=== PATIENT | female | born 1975 | race Caucasian/White ===

== ENCOUNTER → 2017-10-15 | Outpatient (CLI) | payer OTHER | END | disposition home or self-care (01) | LOC: US 18:02 | PROC: BG44ZZZ Ultrasonography of Thyroid Gland (ICD-10-PCS; principal; 2017-10-15) | DX: E03.9 Hypothyroidism, unspecified (principal) ==

== ENCOUNTER 2018-12-18 16:24 | Emergency (ER) | payer OTHER ==
[~2018-12-18] VITALS: Ht 170.2 cm; Wt 97.5 kg
[2018-12-18 16:25] VITALS: BP 122/68; Ht 170.2 cm; Wt 97.5 kg
[2018-12-18 17:37] LABS: BASOPHIL % 1.8 % (0-2); PLATELET COUNT 264 x10^3mcL (130-400)
[2018-12-18 17:41] LABS: CALCIUM 9.3 mg/dL (8.5-10.1); CARBON DIOXIDE 31.1 mmol/L (21-32); CHLORIDE SERUM 101 mmol/L (98-107); GFR1 > 60 mL/min; GLUCOSE SERUM 105 mg/dL (74-106); POTASSIUM SERUM 4.1 mmol/L (3.5-5.1); SODIUM SERUM 141 mmol/L (136-145)
[2018-12-18 17:45] LABS: ALBUMIN 3.8 g/dL (3.4-5.0); ALKALINE PHOSPHATASE 129 U/L (46-116); ALT/SGPT 67 U/L (14-59); AMYLASE 105 U/L (25-115); AST/SGOT 80 U/L (15-37); BILIRUBIN TOTAL 0.4 mg/dL (0.20-1.00); LIPASE 404 IU/L (73-393); TOTAL PROTEIN, SERUM 7.9 g/dL (6.4-8.2)
== END 2018-12-18 18:34 | disposition home or self-care (01) ==
LOC: ED 16:24
PROVIDERS: Specialist
DX: K85.10 Biliary acute pancreatitis without necrosis or infection (principal); K21.9 Gastro-esophageal reflux disease without esophagitis; Z88.0 Allergy status to penicillin; Z88.1 Allergy status to other antibiotic agents
CPT/HCPCS: J1885; J2405; J7030; Q0092

== ENCOUNTER → 2018-12-21 | Outpatient (CLI) | payer OTHER ==
[2018-12-21 11:23] LABS: microscopic required? NO
[2018-12-21 11:26] LABS: BASOPHIL % 0.3 % (0-2); PLATELET COUNT 281 x10^3mcL (130-400); RED CELL DISTRIBUTION WIDTH 14.3 % (11.5-14.5)
[2018-12-21 11:27] LABS: urine erythrocyte NEGATIVE (NEGATIVE)
[2018-12-21 11:49] LABS: ALBUMIN 4.2 g/dL (3.4-5.0); ALKALINE PHOSPHATASE 183 U/L (46-116); ALT/SGPT 543 U/L (14-59); AST/SGOT 141 U/L (15-37); BILIRUBIN TOTAL 0.41 mg/dL (0.20-1.00); CALCIUM 9.4 mg/dL (8.5-10.1); CHLORIDE SERUM 99 mmol/L (98-107); GFR1 > 60 mL/min; GLUCOSE SERUM 93 mg/dL (74-106); HDL CHOLESTEROL 60 mg/dL (40-60); POTASSIUM SERUM 4.2 mmol/L (3.5-5.1); SODIUM SERUM 136 mmol/L (136-145); TOTAL PROTEIN, SERUM 8.1 g/dL (6.4-8.2); TRIGLYCERIDES 78 mg/dL (<150)
[2018-12-21 11:50] LABS: CHOLESTEROL 222 mg/dL (<200); CHOLESTEROL/HDL RATIO 3.7
== END | disposition home or self-care (01) ==
LOC: LB 11:04
DX: I10 Essential (primary) hypertension (principal); D64.9 Anemia, unspecified; E03.9 Hypothyroidism, unspecified; E55.9 Vitamin D deficiency, unspecified; E11.9 Type 2 diabetes mellitus without complications; R82.90 Unspecified abnormal findings in urine

== ENCOUNTER 2019-04-09 09:26 | Emergency (ER) | payer OTHER ==
[~2019-04-09] VITALS: Ht 170.2 cm; Wt 94.3 kg
[2019-04-09 09:28] VITALS: Ht 170.2 cm; Wt 94.3 kg
[2019-04-09 10:11] VITALS: BP 126/78
== END 2019-04-09 10:11 | disposition home or self-care (01) ==
LOC: ED 09:26
DX: S40.862A Insect bite (nonvenomous) of left upper arm, initial encounter (principal); S40.861A Insect bite (nonvenomous) of right upper arm, initial encounter; K21.9 Gastro-esophageal reflux disease without esophagitis; Z86.2 Personal history of diseases of the blood and blood-forming organs and certain disorders involving the immune mechanism; Z87.19 Personal history of other diseases of the digestive system; Z88.1 Allergy status to other antibiotic agents; W57.XXXA Bitten or stung by nonvenomous insect and other nonvenomous arthropods, initial encounter; Y93.89 Activity, other specified; Y92.89 Other specified places as the place of occurrence of the external cause; Y99.8 Other external cause status
CPT/HCPCS: J7512

== ENCOUNTER 2019-06-14 15:11 | Emergency (ER) | payer OTHER ==
[~2019-06-14] VITALS: Ht 170.2 cm; Wt 95.3 kg
[2019-06-14 15:17] VITALS: Ht 170.2 cm; Wt 95.3 kg
[2019-06-14 16:03] LABS: BASOPHIL % 0.5 % (0-2); PLATELET COUNT 239 x10^3mcL (130-400); RED CELL DISTRIBUTION WIDTH 14.5 % (11.5-14.5)
[2019-06-14 16:13] LABS: CALCIUM 8.3 mg/dL (8.5-10.1); CARBON DIOXIDE 29.9 mmol/L (21-32); CHLORIDE SERUM 103 mmol/L (98-107); GFR1 > 60 mL/min; GLUCOSE SERUM 109 mg/dL (74-106); POTASSIUM SERUM 3.5 mmol/L (3.5-5.1); SODIUM SERUM 138 mmol/L (136-145)
[2019-06-14 16:18] LABS: ALBUMIN 3.4 g/dL (3.4-5.0); ALKALINE PHOSPHATASE 99 U/L (46-116); ALT/SGPT 64 U/L (14-59); AST/SGOT 53 U/L (15-37); BILIRUBIN TOTAL 0.4 mg/dL (0.20-1.00); LIPASE 184 IU/L (73-393)
[2019-06-14 19:57] VITALS: BP 132/68
== END 2019-06-14 19:57 | disposition home or self-care (01) ==
LOC: ED 15:11
PROVIDERS: Emergency Medicine
DX: K80.20 Calculus of gallbladder without cholecystitis without obstruction (principal); D25.9 Leiomyoma of uterus, unspecified; N83.202 Unspecified ovarian cyst, left side; K21.9 Gastro-esophageal reflux disease without esophagitis; Z88.1 Allergy status to other antibiotic agents; Z87.19 Personal history of other diseases of the digestive system
CPT/HCPCS: 36415; J1885

== ENCOUNTER 2019-10-29 13:47 | Inpatient (IN) | payer OTHER ==
[~2019-10-29] VITALS: Ht 170.2 cm; Wt 92.1 kg
[2019-10-29 13:52] VITALS: Ht 170.2 cm; Wt 92.1 kg
[2019-10-29 15:06] LABS: BASOPHIL % 0.3 % (0-2); PLATELET COUNT 318 x10^3mcL (130-400)
[2019-10-29 15:17] LABS: CARBON DIOXIDE 27.6 mmol/L (21-32); CHLORIDE SERUM 100 mmol/L (98-107); CREATININE SERUM 0.9 mg/dL (0.6-1.0); GFR1 > 60 mL/min; GLUCOSE SERUM 94 mg/dL (74-106); POTASSIUM SERUM 3.5 mmol/L (3.5-5.1); SODIUM SERUM 138 mmol/L (136-145)
[2019-10-29 15:18] LABS: microscopic required? NO
[2019-10-29 15:21] LABS: ALBUMIN 3.9 g/dL (3.4-5.0); ALKALINE PHOSPHATASE 96 U/L (46-116); ALT/SGPT 45 U/L (14-59); AST/SGOT 22 U/L (15-37); BILIRUBIN TOTAL 0.5 mg/dL (0.20-1.00); LIPASE 165 IU/L (73-393)
[2019-10-29 15:26] LABS: TOTAL PROTEIN, SERUM 8.3 g/dL (6.4-8.2)
[2019-10-29 15:26] LABS: UA SPECIFIC GRAVITY 1.015 (1.005-1.035); urine erythrocyte NEGATIVE (NEGATIVE)
[2019-10-29] MEDS ORDERED: PRILOSEC OTC20 M1 PO (16:20)
[2019-10-29 17:06] VITALS: BP 114/69
[2019-10-29 20:45] VITALS: BP 105/62
[2019-10-30 05:50] VITALS: BP 100/55
[2019-10-30 06:27] LABS: BASOPHIL % 0.3 % (0-2); PLATELET COUNT 259 x10^3mcL (130-400)
[2019-10-30 06:40] LABS: CALCIUM 7.9 mg/dL (8.5-10.1); CARBON DIOXIDE 31.9 mmol/L (21-32); CHLORIDE SERUM 104 mmol/L (98-107); CREATININE SERUM 0.8 mg/dL (0.6-1.0); GFR1 > 60 mL/min; GLUCOSE SERUM 92 mg/dL (74-106); POTASSIUM SERUM 3.7 mmol/L (3.5-5.1); SODIUM SERUM 140 mmol/L (136-145)
[2019-10-30 06:54] LABS: RED CELL DISTRIBUTION WIDTH 14.8 % (11.5-14.5)
[2019-10-30 09:45] VITALS: BP 96/55
[2019-10-30 12:54] VITALS: BP 97/61
[2019-10-30 18:10] VITALS: BP 101/43
[2019-10-30 22:17] VITALS: BP 104/64
[2019-10-31 06:01] VITALS: BP 95/57
[2019-10-31 06:41] LABS: BASOPHIL % 0.1 % (0-2); PLATELET COUNT 265 x10^3mcL (130-400)
[2019-10-31 06:44] LABS: RED CELL DISTRIBUTION WIDTH 15.1 % (11.5-14.5)
[2019-10-31 08:22] LABS: AST/SGOT 29 U/L (15-37); CALCIUM 8.4 mg/dL (8.5-10.1)
[2019-10-31 08:35] LABS: ALKALINE PHOSPHATASE 78 U/L (46-116); ALT/SGPT 43 U/L (14-59); BILIRUBIN TOTAL 0.15 mg/dL (0.20-1.00); CHLORIDE SERUM 103 mmol/L (98-107); CREATININE SERUM 0.9 mg/dL (0.6-1.0); GFR1 > 60 mL/min; GLUCOSE SERUM 120 mg/dL (74-106); POTASSIUM SERUM 4.4 mmol/L (3.5-5.1); SODIUM SERUM 136 mmol/L (136-145); TOTAL PROTEIN, SERUM 6.8 g/dL (6.4-8.2)
[2019-10-31 08:47] VITALS: BP 102/59
[2019-10-31 17:04] VITALS: BP 119/64
[2019-10-31 20:09] VITALS: BP 99/53
[2019-11-01 05:35] VITALS: BP 112/54
[2019-11-01 08:36] VITALS: BP 103/56
[2019-11-01 10:21] VITALS: BP 103/56
== END 2019-11-01 11:17 | disposition home or self-care (01) | DRG 419 ==
LOC: ED 13:47 → EDSTATUS 13:47 → MU 16:00
PROVIDERS: Emergency Medicine; Surgery; ADMIT Internal Medicine
PROC: 0FT44ZZ Resection of Gallbladder, Percutaneous Endoscopic Approach (ICD-10-PCS; principal; 2019-10-30 15:30)
DX: K80.00 Calculus of gallbladder with acute cholecystitis without obstruction (principal); K21.9 Gastro-esophageal reflux disease without esophagitis; D72.829 Elevated white blood cell count, unspecified; Z88.0 Allergy status to penicillin; Z88.1 Allergy status to other antibiotic agents; Z79.899 Other long term (current) drug therapy
CPT/HCPCS: 94150; G0378; J0694; J1885; J2175; J2250; J2405; J2550; J2704; J2710; J3010; J3490; J7030; J7042; J7120

== ENCOUNTER → 2020-02-11 | Outpatient (CLI) | payer OTHER ==
[~2020-02-11] MED LIST: PRILOSEC OTC20 M1 PO
== END | disposition home or self-care (01) ==
LOC: RD 17:31
PROVIDERS: ATTEND Internal Medicine
DX: M25.561 Pain in right knee (principal)

== ENCOUNTER → 2020-02-24 | Outpatient (CLI) | payer OTHER | END | disposition home or self-care (01) | LOC: MI 08:46 | PROVIDERS: ATTEND Internal Medicine | PROC: BQ37ZZZ Magnetic Resonance Imaging (MRI) of Right Knee (ICD-10-PCS; principal; 2020-02-24) | DX: M25.561 Pain in right knee (principal); Z98.890 Other specified postprocedural states ==

== ENCOUNTER → 2020-04-21 | Outpatient (CLI) | payer OTHER | END | disposition home or self-care (01) | LOC: US 17:21 | PROVIDERS: ATTEND Internal Medicine | PROC: BT4JZZZ Ultrasonography of Kidneys and Bladder (ICD-10-PCS; principal; 2020-04-21) | DX: R10.2 Pelvic and perineal pain (principal) ==